=== PATIENT | female | born 1950 | race African-American/Black ===

== ENCOUNTER → 2020-12-09 | Outpatient (CLI) | payer OTHER | LOC: KOH-I 12-06 14:00 | DX: F17.210 Nicotine dependence, cigarettes, uncomplicated (principal) | CPT/HCPCS: 71271 ==

== ENCOUNTER → 2021-09-14 | Outpatient (CLI) | payer OTHER ==
[~2021-09-14] VITALS: Ht 162.6 cm; Wt 72.6 kg
== END ==
LOC: EROP 10:51
DX: U07.1 COVID-19 (principal); Z23 Encounter for immunization; J44.9 Chronic obstructive pulmonary disease, unspecified; I12.9 Hypertensive chronic kidney disease with stage 1 through stage 4 chronic kidney disease, or unspecified chronic kidney disease; N18.9 Chronic kidney disease, unspecified
CPT/HCPCS: M0247; Q0247

== ENCOUNTER → 2021-09-22 | Outpatient (CLI) | payer OTHER | LOC: RAD 10:05 | DX: M25.551 Pain in right hip (principal) | CPT/HCPCS: 73502 ==

== ENCOUNTER → 2021-11-14 | Outpatient (CLI) | payer OTHER | LOC: HEART 5 09:06 | DX: R07.89 Other chest pain (principal); E78.00 Pure hypercholesterolemia, unspecified; I10 Essential (primary) hypertension | CPT/HCPCS: 78452; A9502; J2785 ==

== ENCOUNTER → 2021-11-28 | Outpatient (CLI) | payer OTHER | LOC: MAMO 13:09 | DX: Z12.31 Encounter for screening mammogram for malignant neoplasm of breast (principal) | CPT/HCPCS: 77063; 77067 ==

== ENCOUNTER → 2021-12-12 | Outpatient (CLI) | payer OTHER | LOC: KOH-I 12:51 | DX: Z87.891 Personal history of nicotine dependence (principal) | CPT/HCPCS: 71271 ==

== ENCOUNTER → 2021-12-23 | Day surgery (SDC) | payer OTHER ==
[~2021-12-23] MED LIST: ASPIRIN81 MG PO; BENICAR HCT 401 EAC1 PO; BENZONATATE200 MG PO; BREZTRI AEROS10.7 GM INH; BUPROPION XL150 MG PO; CRESTOR20 MG PO; DOXYCYCLINE HY100 MG PO; KLONOPIN0.5 MG PO; MOBIC7.5 MG PO; NORVASC5 MG PO; TOPROL XL50 MG PO
== END | disposition home or self-care (01) ==
LOC: OR 05:54
DX: Z12.11 Encounter for screening for malignant neoplasm of colon (principal); K57.30 Diverticulosis of large intestine without perforation or abscess without bleeding; I25.10 Atherosclerotic heart disease of native coronary artery without angina pectoris; F17.210 Nicotine dependence, cigarettes, uncomplicated; J44.9 Chronic obstructive pulmonary disease, unspecified; I10 Essential (primary) hypertension; E78.5 Hyperlipidemia, unspecified; Z86.010 Personal history of colon polyps; Z88.2 Allergy status to sulfonamides; Z88.8 Allergy status to other drugs, medicaments and biological substances; Z79.82 Long term (current) use of aspirin; Z79.899 Other long term (current) drug therapy; Z20.822 Contact with and (suspected) exposure to COVID-19
CPT/HCPCS: J2704; J7030

== ENCOUNTER → 2022-02-23 | Outpatient (CLI) | payer OTHER ==
[2022-02-23 10:30] LABS: BORDETELLA PARAPERTUSSIS Not Detected (Not Detectd); BORDETELLA PERTUSSIS Not Detected (Not Detectd); CHLAMYDIA PNEUMONIAE Not Detected (Not Detectd); CORONAVIRUS HKU1 Not Detected (Not Detectd); CORONAVIRUS NL63 Not Detected (Not Detectd); CORONAVIRUS OC43 Not Detected (Not Detectd); CORONOAVIRUS 229E Not Detected (Not Detectd); HUMAN METAPNEUMOVIRUS Not Detected (Not Detectd); HUMAN RHINOVIRUS/ENTEROVIRUS Not Detected (Not Detectd); INFLUENZA A Not Detected (Not Detectd); INFLUENZA B Not Detected (Not Detectd); MYCOPLASMA PNEUMONIAE Not Detected (Not Detectd); PARAINFLUENZA VIRUS 1 Not Detected (Not Detectd); PARAINFLUENZA VIRUS 2 Not Detected (Not Detectd); PARAINFLUENZA VIRUS 3 Not Detected (Not Detectd); PARAINFLUENZA VIRUS 4 Not Detected (Not Detectd); RESPIRATORY SYNCYTIAL VIRUS Not Detected (Not Detectd)
[2022-02-23 12:29] LABS: SARS-CoV-2 NOT DETECTED (Not Detectd)
== END ==
LOC: LAB 10:16
PROVIDERS: Physician Assistant
DX: R05.9 Cough, unspecified (principal); Z20.822 Contact with and (suspected) exposure to COVID-19
CPT/HCPCS: 87633